=== PATIENT | male | born 1930 | race Hispanic/Latino ===

== ENCOUNTER 2018-06-07 16:34 | Inpatient (IN) | payer MEDICARE ==
[~2018-06-07] VITALS: Ht 172.7 cm; Wt 62.6 kg
--- OUTSIDE RECORDS SUMMARY | 2018-06-07 16:37 | XMS REPORT | Summary of Care ---
Author Author JOSE L SHABAZZ M.D. Organization Unknown Address Unknown Phone Unavailable Care Team Providers Care Furniture Shampooer Name Role Phone JOHN PAUL DOMINGUEZ M.D. Unavailable Unavailable JOSE L SHABAZZ M.D. Unavailable Unavailable Doug Chen, Crystal Unavailable Unavailable SARTHAK BAEZA, TEE Richardson Unavailable Unavailable [place] BAEZA [place], ALLISON Benjamin Unavailable Unavailable Unavailable Unavailable Functional Status Name Dates Details Functional status health issues are not documented Status: Name Dates Details Cognitive status health issues are not documented Status: Problems Name Dates Details Thyroid disorder (246.9, E07.9) Status: Active Peripheral vascular disease (443.9, I73.9) Status: Active Acute on chronic systolic congestive heart failure (428.23, I50.23) Status: Active Aortic valve stenosis, nonrheumatic (424.1, I35.0) Status: Active Carotid artery plaque (433.10, I65.29) Status: Active Chest pain (786.50, R07.9) Status: Active Coronary artery disease (414.00, I25.10) Status: Active Diabetes mellitus (250.00, E11.9) Status: Active Essential (primary) hypertension (401.9, I10) Status: Active Hyperlipidemia (272.4, E78.5) Status: Active Ischemic cardiomyopathy (414.8, I25.5) Status: Active Limb pain (729.5, M79.609) Status: Active 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 * Refills: 0 Active Isosorbide Mononitrate ER 30 MG Oral Tablet Extended Release 24 Hour TAKE 1 TABLET BY MOUTH ONCE DAILY * Quantity: 90 Refills: 0 JOSE L SHABAZZ M.D. * Start : 2-May-2014 Active Ecotrin Low Strength 81 MG Oral Tablet Delayed Release TAKE 1 TABLET DAILY. * Refills: 0 Active HumuLIN 70/30 (70-30) 100 UNIT/ML Subcutaneous Suspension * Refills: 0 Active MetFORMIN HCl - 1000 MG Oral Tablet TAKE 1 TABLET TWICE DAILY. * Refills: 0 Active Torsemide 20 MG Oral Tablet TAKE 1 TABLET EVERY OTHER DAY * Quantity: 45 Refills: 0 JOSE L SHABAZZ M.D. * Start : 25-Jan-2014 Active Carvedilol 3.125 MG Oral Tablet TAKE 1 TABLET TWICE DAILY WITH MEALS. * Quantity: 180 Refills: 0 JOSE L SHABAZZ M.D. * Start : 16-Mar-2014 Active GlipiZIDE ER 10 MG Oral Tablet Extended Release 24 Hour BID * Refills: 0 * Start : 31-Mar-2014 Active Levothyroxine Sodium 50 MCG Oral Tablet TAKE 1 TABLET DAILY. * Quantity: 90 Refills: 0 JOSE L SHABAZZ M.D. * Start : 03-Sep-2016 Active Centrum Oral Tablet TAKE 1 TABLET DAILY. * Refills: 0 JOHN PAUL DOMINGUEZ M.D. * Start : 31-Dec-2016 Active Atorvastatin Calcium 10 MG Oral Tablet TAKE 1 TABLET AT BEDTIME. * Quantity: 30 Refills: 1 JOHN PAUL DOMINGUEZ M.D. * Start : 31-Dec-2016 Active Dorzolamide HCl - 2 % Ophthalmic Solution INSTILL 1 DROP IN THE LEFT EYE TWICE DAILY. * Refills: 0 JOSE L SHABAZZ M.D. 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, 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) Status: Resolved History of peripheral vascular disease (V12.59, Z86.79) Status: Resolved Past myocardial infarction (412, I25.2) Status: Resolved Procedures Procedure Dates Details [B] SERUM PROTEIN ELECTROPHORESIS Date: 25-Mar-2018 [B] HIV 1 & 2 CONFIRMATION TEST Date: 25-Mar-2018 History of CABG Completed History of Hernia Repair Completed History of Cataract Surgery Completed History of Carotid Thromboendarterectomy Completed History of Pacemaker Placement Completed Immunization Name Dates Details Immunizations not documented Family History Name Dates Details Family history of Heart Disease (V17.49) Status: Active Social History Name Dates Details - Status: Name Dates Details Former smoker Vital Signs Date Test Result Details No Known Vitals to report Results Date Description Value Details Results not documented Plan of Care Name Dates Details Planned Observations Planned Goals not documented Planned Encounters Appointment; JOSE L SHABAZZ M.D. On: 14-Oct-2018 9:15 Interventions Provided Medication Changes* Carvedilol 3.125 MG Oral Tablet - Renew * Torsemide 20 MG Oral Tablet - Renew Instructions Name Dates Details Instructions not documented Encounters Appointment; JOSE L SHABAZZ M.D. Encounter Diagnosis: Problem not documented On: 25-Jun-2016 9:15 Appointment; JOSE L SHABAZZ M.D. Encounter Diagnosis: Problem not documented On: 03-Sep-2016 9:45 Appointment; ALLISON IRWIN M.D. Encounter Diagnosis: Problem not documented On: 08-Oct-2016 10:15 Appointment; ALLISON IRWIN M.D. Encounter Diagnosis: Problem not documented On: 22-Oct-2016 10:00 Appointment; ALLISON IRWIN M.D. Encounter Diagnosis: Problem not documented On: 29-Oct-2016 11:30 Appointment; ALLISON IRWIN M.D. Encounter Diagnosis: Problem not documented On: 05-Nov-2016 11:15 Appointment; SE, ECHO Encounter Diagnosis: Problem not documented On: 15-Dec-2016 8:00 Appointment; SE ECHO Encounter Diagnosis: Problem not documented On: 15-Dec-2016 8:00 Appointment; JOSE L SHABAZZ M.D. Encounter Diagnosis: Problem not documented On: 31-Dec-2016 9:10 Appointment; JOSE L SHABAZZ M.D. Encounter Diagnosis: Problem not documented On: 31-Dec-2016 9:15 Appointment; JOSE L SHABAZZ M.D. Encounter Diagnosis: Problem not documented On: 30-Apr-2017 9:30 Appointment; JOSE L SHABAZZ M.D. Encounter Diagnosis: Problem not documented On: 19-Aug-2017 13:20 Appointment; , [facility] Encounter Diagnosis: Problem not documented On: 09-Sep-2017 15:15 Appointment; JOSE L SHABAZZ M.D. Encounter Diagnosis: Problem not documented On: 22-Sep-2017 13:10 Appointment; JOSE L SHABAZZ M.D. Encounter Diagnosis: Problem not documented On: 24-Dec-2017 13:40 Appointment; JOSE L SHABAZZ M.D. Encounter Diagnosis: Problem not documented On: 25-Mar-2018 10:15 Appointment; JOSE L SHABAZZ M.D. Encounter Diagnosis: Problem not documented On: 15-Apr-2018 9:45
--- OUTSIDE RECORDS SUMMARY | 2018-06-07 16:37 | XMS REPORT | Summary of Care ---
Author Author JOSE L SHABAZZ M.D. Unknown Address Unknown Phone Unavailable Care Team Providers Care Lawn Care Specialist Name Role Phone JOHN PAUL DOMINGUEZ M.D. Unavailable Unavailable JOSE L SHABAZZ M.D. Unavailable Unavailable TEE DE LEÓN MD Unavailable Unavailable DC BAEZA [place], ALLISON Benjamin Unavailable Unavailable Unavailable Unavailable Functional Status Name Dates Details Functional status health issues are not documented Status: Name Dates Details Cognitive status health issues are not documented Status: Problems Name Dates Details Acute on chronic systolic congestive heart failure (428.23, I50.23) Status: Active Thyroid disorder (246.9, E07.9) Status: Active Peripheral vascular disease (443.9, I73.9) Status: Active Aortic valve stenosis, nonrheumatic (424.1, [...] JOSE L SHABAZZ M.D. * Start : 11-May-2014 Active Ecotrin Low Strength 81 MG Oral [...] * Start : 31-Mar-2014 Active Levothyroxine Sodium 25 MCG Oral Tablet TAKE 1 TABLET DAILY. [...] I25.2) Status: Resolved Procedures Procedure Dates Details History of CABG Completed History of Hernia Repair Completed History of Cataract Surgery Completed History of Carotid Thromboendarterectomy Completed History of Pacemaker Placement Completed Immunization Name Dates Details Immunizations not documented Family History Name Dates Details Family history of Heart Disease (V17.49) Status: Active Social History Name Dates Details - Status: Name Dates Details Former smoker Vital Signs Date Test Result Details [id number] BP Systolic 159 mm[Hg] Status: BP Diastolic 55 mm[Hg] Status: Height 65 in Status: Weight 148 lb Status: Body Mass Index Calculated 24.63 kg/m2 Status: Body Surface Area Calculated 1.74 m2 Status: Heart Rate 68 /min Status: Results Date Description Value Details Results not documented Plan of Care Name Dates Details Planned Observations Planned Goals not documented Planned Encounters Appointment; JOSE L SHABAZZ M.D. On: 25-Mar-2018 10:15 Interventions Provided Instructions* Patient Specific Education Given; Done: 24 Dec 2017 Plan* CAD * - ASymptomatic, remote ACB * - Continue medical therapy optimization and aggressive CV risk factor control * - On ASA, Atorvastatin 20mg HS and Carvedilol 6.25mg BID, nitrates. * - Continue GDMT * ATRIAL FIBRILLATION * - Currently sinus. * - Not on OAC due to fall risk. * - Continue amiodarone 100mg qd + -b-blockers * HLD * - LDL well controlled, he has lost almost 20llbs! hold statins for now * PAD * - Continue ASA * - Exercise therapy * * - s/p TAVR - Dumont Anny 3 - 23mm * - Doing very well. Repeat TTE shows LVEF 40-45% with normal functioning valve * - TTE with valve shows normal function. * BRADYCARDIA * - REsolved * HTN * - Well controlled, continue same * - He refers that he feels better * GI BLEED * - Working with GI, plans for capsule endoscopy * WEIGHT LOSS * - Unclear etiology; work up in progresss * RTC 3 months Discussion/Summary* Reviewed and discussed clinical cardiac findings and medications. * EKG, hospital records and defibrillator results reviewed and discussed. Instructions Name Dates Details Instructions not documented Encounters Appointment; JOSE L SHABAZZ M.D. Encounter Diagnosis: Problem not documented On: 04-Jan-2016 8:50 Appointment; JOSE L SHABAZZ M.D. Encounter Diagnosis: Problem not documented On: 16-Jan-2016 14:30 Appointment; SE, ECHO Encounter Diagnosis: Problem not documented On: 28-Feb-2016 9:00 Appointment; JOSE L SHABAZZ M.D. Encounter Diagnosis: Problem not documented On: 28-Feb-2016 9:30 Appointment; JOSE L SHABAZZ M.D. Encounter [...] Problem not documented On: 15-Dec-2016 8:00 Appointment; SE, ECHO Encounter Diagnosis: Problem not [...] Problem not documented On: 19-Aug-2017 13:20 Appointment; SE, ECHO Encounter Diagnosis: Problem not documented On: 09-Sep-2017 15:15 Appointment; JOSE L SHABAZZ M.D. Encounter Diagnosis: Problem not documented On: 22-Sep-2017 13:10 Appointment; JOSE L SHABAZZ M.D. Encounter Diagnosis: Problem not documented On: 24-Dec-2017 13:40
--- OUTSIDE RECORDS SUMMARY | 2018-06-07 16:37 | XMS REPORT ---
Author Author [facility] Address Unknown Phone Unavailable Care Team Providers Care Risk Consulting Treasury Director Name Role Phone Unavailable Unavailable Problems This patient has no known problems. Allergies, Adverse Reactions, Alerts This patient has no known allergies or adverse reactions. Medications This patient has no known medications.
[2018-06-07 17:27] LABS: BASOPHILS # (AUTO) 0.1 (0.0-0.1); BASOPHILS % 0.5 % (0.0-1.0); EOSINOPHILS # (AUTO) 0.1 (0.0-0.4); EOSINOPHILS % 0.8 % (0.0-6.0); HEMATOCRIT 29.1 % (38.2-49.6); HEMOGLOBIN 9.3 g/dL (14.0-18.0); LYMPHOCYTES # (AUTO) 1.4 (1.0-3.2); LYMPHOCYTES % 13.3 % (18.0-39.1); MEAN CORPUSCULAR HEMOGLOBIN 28.6 pg (28-32); MEAN CORPUSCULAR VOLUME 89.5 fL (81-99); MONOCYTES # (AUTO) 0.6 (0.2-0.8); MONOCYTES % 5.7 % (4.4-11.3); NEUTROPHILS # (AUTO) 8.1 (2.1-6.9); NEUTROPHILS % 79.2 % (38.7-80.0); PLATELET COUNT 192 x10e3/uL (140-360); RED BLOOD COUNT 3.25 x10e6/uL (4.3-5.7); RED CELL DISTRIBUTION WIDTH 16.9 % (11.7-14.4)
[2018-06-07 17:40] LABS: INR 1.14; PARTIAL THROMBOPLASTIN TIME 28.8 seconds (23.8-35.5); PROTHROMBIN TIME 15.6 seconds (11.9-14.5)
[2018-06-07 17:46] LABS: ALBUMIN 2.8 g/dL (3.5-5.0); ALBUMIN/GLOBULIN RATIO 0.6 (0.8-2.0); ANION GAP 14.8 mmol/L (8-16); CALCIUM 9.6 mg/dL (8.4-10.2); CREATININE, SERUM 1.8 mg/dL (0.72-1.25); MAGNESIUM 1.8 MG/DL (1.3-2.1); POTASSIUM 3.8 mmol/L (3.5-5.1)
[2018-06-07 17:56] LABS: CREATINE KINASE MB 2.9 ng/mL (0-5.0)
[2018-06-07 17:57] LABS: B-TYPE NATRIURETIC PEPTIDE2 2234.9 pg/mL (0-100)
[2018-06-07] MEDS ORDERED: FUROSEMIDE INJ 10 MG/ML 4 ML VIAL IV ONE (18:15)
[2018-06-07 18:18] LABS: HYPOCHROMASIA SLIGHT; LYMPHOCYTES % (MANUAL) 9 % (19-48); MONOCYTES % (MANUAL) 6 % (3.4-9.0); NEUTROPHILS % (MANUAL) 84 % (40-74); RBC MORPHOLOGY COMMENT NORMAL
--- NOTE | 2018-06-07 18:18 | Diagnostic Imaging Report ---
Examination: Single AP view of the chest. COMPARISON: None. INDICATION: Respiratory distress, SOB IMPRESSION: 1. Lines and Tubes: Single lead cardiac device in the left upper chest, with distal tip projecting in the right ventricle. 2. Hypoinflated lungs. Bibasilar atelectasis, left greater than right. Likely left pleural effusion. 3. Prominent cardiac silhouette, which is partly due to low lung volumes. Central pulmonary venous congestion. 4. No acute bony abnormalities. Generalized osteopenia. Signed by: Dr. Haresh Fortune M.D. on 06/07/2018 6:15 PM
[2018-06-07 18:19] LABS: PLATELET ESTIMATE ADEQUATE; PLATELET MORPHOLOGY COMMENT NORMAL
[2018-06-07 18:29] LABS: ABG HCO3 13 mmol/L (23-28); ABG PCO2 25 mmHg (41-51); ABG PH 7.33 (7.31-7.41); ABG PO2 69 mmHg (80-105)
--- NOTE | 2018-06-07 19:06 | Consultation ---
DATE OF CONSULTATION: June 07, 2018 CARDIOLOGY CONSULTATION REFERRING PHYSICIAN: Dr. Jethro Ku. REASON FOR CONSULTATION: Shortness of breath. HISTORY OF PRESENT ILLNESS: Mr. Tyler is a pleasant 88-year-old man with a history of hypertension, dyslipidemia, coronary artery disease with prior aortocoronary bypass, a reported history of transcatheter aortic valve replacement and status post ICD, who presents to [facility] transferred from [facility] with complaints of worsening shortness of breath after receiving IV fluids yesterday for low blood pressure. He has had weight loss over the last several months, currently denies any chest pain. His dyspnea is improving. He order of Lasix in the emergency department. No other complaints at this time. REVIEW OF SYSTEMS: A 12-system review negative except for as noted above. ALLERGIES: NO KNOWN DRUG ALLERGIES. PAST MEDICAL HISTORY: As per HPI. SOCIAL HISTORY: Former smoker. No alcohol or drugs. FAMILY HISTORY: Noncontributory. PHYSICAL EXAMINATION VITAL SIGNS: Temperature 98.4, heart rate 65, respiratory rate 20, blood pressure 125/65, O2 sat 93% on nasal cannula. GENERAL: No acute distress. NECK: JVD elevated to mid neck. CHEST: Decreased breath sounds in bilateral bases with scattered rales. CARDIOVASCULAR: Regular rate and rhythm. Normal S1 and S2. A systolic ejection murmur at left lower parasternal border as well as a midsystolic murmur in the apex. A sternotomy scar. ABDOMEN: Soft, nontender. EXTREMITIES: With trace edema. Decreased pedal pulses. CARDIOVASCULAR MEDICATIONS: Reviewed. STUDIES: Reviewed. White blood cells 10.2, hemoglobin 9.3, platelets 192. INR 1.1. Creatinine 1.8. Troponin I of 0.119. BNP is 2234. Normal transaminases. Lactic acid of 17. Glucose 215. Total protein 7.4, albumin 2.8. Blood cultures ordered and pending. Chest x-ray with prominent cardiomediastinal silhouette and interstitial pulmonary edema, pending x-ray read by Radiology. Defibrillator noted. ASSESSMENT 1. Gnnwu-qg-gappmwt heart failure. 2. Status post aortic valve replacement, transcatheter. 3. Automatic implantable cardioverter-defibrillator with a history of bypass. 4. Hypertension. 5. Dyslipidemia. 6. Renal failure. 7. Deconditioning and weight loss. RECOMMENDATIONS 1. Agree with diuretics. 2. Resume antihypertensives and obtain echocardiogram. 3. Keep on telemetry. 4. Will discuss with his outpatient treating document management specialist to further obtain confirmation on prior history. Further recommendations to follow. Thank you for the opportunity to participate in the care of Mr. Tyler. Job#: [id number] EV
[2018-06-07] MEDS ORDERED: ALBUTEROL SULF 0.083% NEB SOLN 3 ML NEB NEB STA (19:13)
[2018-06-07] MEDS ORDERED: IPRATROPIUM BROMIDE 0.02% 2.5 ML NEB NEB ONE (19:15)
[2018-06-07] MEDS ORDERED: ONDANSETRON HCL INJ 2 MG/ML VIAL IV PRN (19:30)
[2018-06-07] MEDS ORDERED: DEXTROSE 50% SYRINGE 50 ML IV PRN (19:30)
[2018-06-07] MEDS ORDERED: FAMOTIDINE 20 MG/2 ML VIAL IV SCH (19:30)
[2018-06-07] MEDS: ATORVASTATIN 20 MG TAB PO SCH (20:20)
[2018-06-07] MEDS: METOPROLOL TARTRATE 25 MG TAB PO SCH (22:08)
[2018-06-07] MEDS ORDERED: ACETAMINOPHEN 325 MG TAB PO PRN (22:30)
[2018-06-07 22:40] LABS: CLARITY,URINE CLOUDY (CLEAR); COLOR,URINE YELLOW (YELLOW)
[2018-06-07 22:41] LABS: BILIRUBIN,URINE NEGATIVE (NEGATIVE); KETONES,URINE NEGATIVE (NEGATIVE); LEUKOCYTE ESTERASE ,URINE 2+ (NEGATIVE); NITRITE,URINE NEGATIVE (NEGATIVE); PROTEIN,URINE DIPSTICK NEGATIVE (NEGATIVE); URINE UROBILINOGEN 0.2 mg/dL (0.2 - 1)
[2018-06-07] MEDS: INSULIN LISPRO 100 UNIT/1 ML 3ML VIAL SQ SCH (22:47)
[2018-06-07 23:00] LABS: WBC,URINE (MAN) >50 /HPF (0-5)
[2018-06-07 23:04] LABS: BACTERIA,URINE FEW /HPF; EPITHELIAL CELLS,URINE FEW /LPF; YEAST,URINE MANY
[2018-06-07] MEDS ORDERED: NYSTATIN1 EAC1 TOP (23:07)
[2018-06-07] MEDS ORDERED: AMIODARONE HCL200 MG PO (23:07)
[2018-06-07] MEDS ORDERED: BENZONATATE100 MG PO (23:07)
[2018-06-07] MEDS ORDERED: ZINC SULFATE220 M1 PO (23:07)
[2018-06-07] MEDS ORDERED: METFORMIN HCL500 MG PO (23:07)
[2018-06-07] MEDS ORDERED: MEGESTROL ACETA40 MG PO (23:07)
[2018-06-07] MEDS ORDERED: NOVOLOG MI100 UNIT/1 SQ (23:07)
[2018-06-07] MEDS ORDERED: TIMOPTIC5 ML OU (23:07)
[2018-06-07] MEDS ORDERED: FINASTERIDE5 MG PO (23:07)
[2018-06-07] MEDS ORDERED: LEVOTHYROXINE50 MCG PO (23:07)
[2018-06-07] MEDS ORDERED: ASPIRIN EC81 MG PO (23:07)
[2018-06-07] MEDS ORDERED: DORZOLAMIDE HCL10 ML OS (23:07)
[2018-06-07] MEDS ORDERED: MULTIPLE VITAM1 EAC1 PO (23:07)
[2018-06-07] MEDS ORDERED: TYLENOL WITH C1 EACH PO (23:07)
[2018-06-07] MEDS ORDERED: TAMSULOSIN HCL0.4 MG PO (23:07)
[2018-06-07] MEDS ORDERED: XALATAN2.5 ML OU (23:07)
[2018-06-07] MEDS ORDERED: CILOSTAZOL100 MG PO (23:07)
[2018-06-07] MEDS ORDERED: ATORVASTATIN CA20 MG PO (23:07)
[2018-06-07] MEDS ORDERED: POTASSIUM CHLO20 ME1 PO (23:07)
[2018-06-07] MEDS ORDERED: GLIPIZIDE5 MG PO (23:07)
[2018-06-07] MEDS ORDERED: SILVADENE20 GM TOP (23:07)
[2018-06-08] MEDS: CEFTRIAXONE SOD 1 GM VIAL IV SCH ×2 (00:13→23:45)
[2018-06-08 01:30] LABS: ALBUMIN 2.5 g/dL (3.5-5.0); ALBUMIN/GLOBULIN RATIO 0.6 (0.8-2.0); ANION GAP 17.6 mmol/L (8-16); BASOPHILS % 0.2 % (0.0-1.0); CALCIUM 9.2 mg/dL (8.4-10.2); CREATININE, SERUM 1.86 mg/dL (0.72-1.25); HEMATOCRIT 24.4 % (38.2-49.6); HEMOGLOBIN 7.9 g/dL (14.0-18.0); LYMPHOCYTES # (AUTO) 1.2 (1.0-3.2); LYMPHOCYTES % 8.7 % (18.0-39.1); MEAN CORPUSCULAR HEMOGLOBIN 28.8 pg (28-32); MEAN CORPUSCULAR HGB CONC 32.4 g/dL (31-35); MEAN CORPUSCULAR VOLUME 89.1 fL (81-99); MONOCYTES # (AUTO) 0.6 (0.2-0.8); MONOCYTES % 4.4 % (4.4-11.3); NEUTROPHILS # (AUTO) 12.2 (2.1-6.9); NEUTROPHILS % 86.1 % (38.7-80.0); PLATELET COUNT 174 x10e3/uL (140-360); POTASSIUM 3.6 mmol/L (3.5-5.1); RED BLOOD COUNT 2.74 x10e6/uL (4.3-5.7); RED CELL DISTRIBUTION WIDTH 16.9 % (11.7-14.4)
[2018-06-08 02:24] LABS: THYROID STIMULATING HORMONE 2.807 uIU/mL (0.350-4.940)
[2018-06-08] MEDS: INSULIN LISPRO 100 UNIT/1 ML 3ML VIAL SQ SCH ×4 (08:21→21:28)
[2018-06-08] MEDS ORDERED: METOPROLOL TARTRATE INJ 1 MG/ML VIAL IV PRN (08:30)
--- NOTE | 2018-06-08 08:57 | History and Physical ---
CHIEF COMPLAINT: Shortness of breath and confusion. HISTORY OF PRESENT ILLNESS: This is an 88-year-old man who is a resident at [facility], now developing shortness of breath and sent to the hospital for further evaluation and management. The patient is unable to provide any history. All history has been obtained from records provided by the facility. PAST MEDICAL HISTORY: Cardiac arrhythmia, hypertension, hyperlipidemia, BPH, diabetes mellitus, type 2, anorexia, fungal infection. PAST SURGICAL HISTORY: Unknown. ALLERGIES: PER ELECTRONIC MEDICAL RECORD. FAMILY HISTORY/SOCIAL HISTORY: Patient currently resides at [facility]. PHYSICAL EXAMINATION CHEST: He has a subcutaneous cardiac device palpable. Lungs with coarse breath sounds throughout. EXTREMITIES: With no edema. He has a right foot with dressing in place for decubitus heel ulcer. MUSCULOSKELETAL: He has stage 2 sacral ulcer. SKIN: Dry. PSYCHIATRIC: Flat affect. NEUROLOGIC: Confused. LABS: Reviewed. MEDICATIONS: Reviewed. ASSESSMENT AND PLAN: This is an 88-year-old man with: 1. Acute bronchitis and possible pneumonia. 2. Acute exacerbation of systolic congestive heart failure. 3. Sepsis. 4. Right pleural effusion. 5. Diabetes mellitus, type 2. 6. Systolic congestive heart failure. 7. Metabolic acidosis. 8. Elevated troponin. 9. Urinary tract infection. 10. Moderate anemia. 11. Cardiac arrhythmia: Add amiodarone. PLAN 1. Treat with antibiotics for possible pneumonia and also for urinary tract infection. 2. Follow up cultures. 3. Obtain hemoglobin A1c and lipid panel. 4. Will obtain a CT scan of the chest without contrast. 5. Echocardiogram shows left ventricular ejection fraction less than 20% with some valve disease with prosthetic valve. 6. Follow up cardiology recommendations. 7. Obtain cardiac enzymes. 8. Will use heparin 5000 q.8 h. and Pepcid. 9. Continue IV Lasix. 10. Monitor closely. Job#: [id number] EV
[2018-06-08 09:10] LABS: BASOPHILS % 0.3 % (0.0-1.0); HEMATOCRIT 25.3 % (38.2-49.6); HEMOGLOBIN 8.1 g/dL (14.0-18.0); LYMPHOCYTES # (AUTO) 1.5 (1.0-3.2); LYMPHOCYTES % 11.2 % (18.0-39.1); MEAN CORPUSCULAR HEMOGLOBIN 28.5 pg (28-32); MEAN CORPUSCULAR VOLUME 89.1 fL (81-99); MONOCYTES # (AUTO) 0.6 (0.2-0.8); MONOCYTES % 4.2 % (4.4-11.3); NEUTROPHILS % 83.7 % (38.7-80.0); PLATELET COUNT 163 x10e3/uL (140-360); RED BLOOD COUNT 2.84 x10e6/uL (4.3-5.7); RED CELL DISTRIBUTION WIDTH 16.9 % (11.7-14.4)
[2018-06-08] MEDS: FAMOTIDINE 20 MG/2 ML VIAL IV SCH ×2 (09:21→17:00)
[2018-06-08] MEDS: FUROSEMIDE INJ 10 MG/ML 4 ML VIAL IV SCH ×2 (09:21→17:00)
[2018-06-08] MEDS: HEPARIN SOD (PORCINE) 5,000 UNIT/ML VIAL SC SCH ×2 (09:21→21:28)
[2018-06-08 09:34] LABS: ALBUMIN 2.5 g/dL (3.5-5.0); ALBUMIN/GLOBULIN RATIO 0.6 (0.8-2.0); ANION GAP 16.9 mmol/L (8-16); CALCIUM 9.4 mg/dL (8.4-10.2); CREATININE, SERUM 1.83 mg/dL (0.72-1.25); POTASSIUM 3.9 mmol/L (3.5-5.1)
[2018-06-08 09:45] LABS: CREATINE KINASE MB 3.6 ng/mL (0-5.0)
[2018-06-08] MEDS: METOPROLOL TARTRATE 25 MG TAB PO SCH ×2 (10:16→21:00)
[2018-06-08] MEDS: ASPIRIN 81 MG CHEW TAB PO SCH (10:16)
[2018-06-08 10:21] LABS: BAND NEUTROPHILS % (MANUAL) 2 %; LYMPHOCYTES % (MANUAL) 15 % (19-48); METAMYELOCYTES % (MANUAL) 1 % (0-0); MONOCYTES % (MANUAL) 2 % (3.4-9.0); NEUTROPHILS % (MANUAL) 80 % (40-74)
[2018-06-08 10:23] LABS: PLATELET ESTIMATE ADEQUATE; PLATELET MORPHOLOGY COMMENT NORMAL
[2018-06-08 10:24] LABS: HYPOCHROMASIA SLIGHT; RBC MORPHOLOGY COMMENT NORMAL
[2018-06-08 12:13] VITALS: BP 131/58
[2018-06-08 13:10] VITALS: BP 131/58
[2018-06-08 13:43] VITALS: BP 131/58
--- NOTE | 2018-06-08 13:54 | Diagnostic Imaging Report ---
CT CHEST WITHOUT CONTRAST HISTORY: CHF, anemia COMPARISON: Chest radiograph June 07, 2018 TECHNIQUE: CT scan of the chest WITHOUT intravenous contrast, using standard protocol. The chest was scanned utilizing a multidetector helical scanner from the apex to the level of the adrenal glands. Coronal and sagittal reformats are provided. IV CONTRAST: None, which limits evaluation of the vascular structures, mediastinum and soft tissues. RADIATION DOSE: Total DLP: 527 mGy*cm Dose modulation, iterative reconstruction, and/or weight based adjustment of the mA/kV was utilized to reduce the radiation dose to as low as reasonably achievable. COMPLICATIONS: None FINDINGS: Lines/tubes: Left-sided implanted cardiac device. Lungs and Airways: Low lung volumes result in bibasilar vascular crowding, accentuation of the pulmonary interstitial markings, central pulmonary vasculature, and the cardiac silhouette. Allowing for these limitations, the findings are as follows: * Biapical pleural-parenchymal nodule densities versus scarring. * Patchy areas of nodular conglomerates, some in a nonspecific tree-in-bud type distribution. More confluent opacities in the dependent portion of the lower lobes, right greater than left. * Diffusely increased interstitial markings. * Impaction versus aspiration of multiple bronchi, most notably the right lower lobe. Pleura: The pleural spaces are clear. Heart and mediastinum: The thyroid gland is normal. Global cardiomegaly. Abdomen: Limited nonenhanced views of the upper abdomen. Diffuse parenchymal atrophy of the pancreas. Small calcified stones within the gallbladder. A 1.6 cm fluid density at the anterior interpolar region of the right kidney. Lymph nodes: No pathologically enlarged lymph node identified. Vessels: Scattered atherosclerotic vascular calcifications, including the coronary arteries. Probable coronary metallic stents. A metallic stent at the aortic root. Bones: Diffusely decreased mineralization of the osseous structures limits bone detail. Multiple median sternotomy wires. Multiple left-sided rib fracture deformities in the late stages of healing. Accentuation of the thoracic kyphosis. Multilevel mild to moderate degenerative disc changes. Soft tissues: Otherwise, unremarkable. IMPRESSION: 1. Findings suggestive of multifocal aspiration. In the appropriate setting, an atypical multifocal pneumonia may be an alternative consideration. 2. Cardiomegaly, central pulmonary vascular congestion, and probable mild interstitial edema. 3. Coronary atherosclerosis. 4. Cholelithiasis. 5. Osseous demineralization. 6. Right renal cyst, likely an incidental simple cyst. Signed by: Dr. Amarjit Tsang D.O., M.M.M. on 06/08/2018 1:51 PM
[2018-06-08] MEDS ORDERED: DEXTROSE 5%/0.45% SOD CHL 1,000 ML IV SCH (15:15)
[2018-06-08 16:03] VITALS: BP 123/58
[2018-06-08 18:13] LABS: CREATINE KINASE MB 3.3 ng/mL (0-5.0)
--- NOTE | 2018-06-08 18:45 | Progress Note ---
DATE: June 08, 2018 CARDIOLOGY PROGRESS NOTE SUBJECTIVE: No complaints currently. Shortness of breath improving. OBJECTIVE VITAL SIGNS: Temperature 97.4, heart rate 111, respiratory rate 17, blood pressure 123/58, O2 sat 97% on 2 liters per minute nasal cannula. GENERAL: In no acute distress. Overall not taking p.o. NECK: Today JVD in lower third of neck. CHEST: With coarse breath sounds and bilateral base rales. CARDIOVASCULAR: Regular rate and rhythm. Normal S1 and S2. A systolic ejection murmur. ABDOMEN: Soft, nontender. EXTREMITIES: Trace edema. CARDIOVASCULAR MEDICATIONS: Reviewed. On subcutaneous heparin 5000 units q.12 h., furosemide 40 mg b.i.d. IV, atorvastatin 20 mg nightly, aspirin 81 mg daily, metoprolol tartrate 12.5 mg every 12 hours. STUDIES: Reviewed. White blood cells 13.1, hemoglobin 8.1, platelets 163. Sodium 143, potassium 3.9, chloride 114, bicarbonate 16, BUN 29, creatinine 1.8, glucose 255, calcium 9.4. Total bilirubin 0.7, AST is 10, ALT 6. Troponin I 0.389 down from 0.520. Echocardiogram reviewed. With LVEF of 25% to 30%. Urinalysis concerning for a urinary tract infection. ASSESSMENT 1. Ulyhh-vh-linoiit severe systolic heart failure. 1. Status post transcatheter aortic valve replacement. 2. History of aortocoronary bypass. 3. Poor oral intake/failure to thrive. 4. Severe deconditioning. 5. Urinary tract infection and sepsis. 6. Diabetes mellitus type 2. 7. Right-sided pleural effusion. 8. Metabolic acidosis. 9. Anemia. RECOMMENDATIONS 1. At this point continue to optimize his volume status. Continue diuretics. 2. Continue current cardiovascular medications. 3. IV antibiotics per primary service for UTI/sepsis. 4. Very deconditioned with decreased p.o. intake, weight loss. Consider rehab continuation as well as evaluation by speech pathology. Job#: [id number] EV
[2018-06-08 20:00] VITALS: BP 112/69
[2018-06-08] MEDS: ATORVASTATIN 20 MG TAB PO SCH (21:00)
[2018-06-08 21:28] VITALS: BP 112/69
[2018-06-09] VITALS: BP 129/62
[2018-06-09 04:00] VITALS: BP 105/52
[2018-06-09 07:22] LABS: BASOPHILS % 0.3 % (0.0-1.0); EOSINOPHILS % 0.2 % (0.0-6.0); LYMPHOCYTES # (AUTO) 1.2 (1.0-3.2); LYMPHOCYTES % 9.3 % (18.0-39.1); MEAN CORPUSCULAR HEMOGLOBIN 28.4 pg (28-32); MEAN CORPUSCULAR VOLUME 91.5 fL (81-99); MONOCYTES # (AUTO) 0.6 (0.2-0.8); MONOCYTES % 4.9 % (4.4-11.3); NEUTROPHILS # (AUTO) 10.4 (2.1-6.9); NEUTROPHILS % 84.6 % (38.7-80.0); PLATELET COUNT 175 x10e3/uL (140-360); RED BLOOD COUNT 3.17 x10e6/uL (4.3-5.7); RED CELL DISTRIBUTION WIDTH 17.5 % (11.7-14.4)
[2018-06-09] MEDS: INSULIN LISPRO 100 UNIT/1 ML 3ML VIAL SQ SCH (07:30)
[2018-06-09 07:39] LABS: ANION GAP 18.4 mmol/L (8-16); CALCIUM 9.5 mg/dL (8.4-10.2); CREATININE, SERUM 1.69 mg/dL (0.72-1.25); MAGNESIUM 1.7 MG/DL (1.3-2.1); POTASSIUM 3.4 mmol/L (3.5-5.1)
[2018-06-09 08:00] VITALS: BP 132/61
[2018-06-09 08:03] LABS: BAND NEUTROPHILS % (MANUAL) 4 %; LYMPHOCYTES % (MANUAL) 10 % (19-48); METAMYELOCYTES % (MANUAL) 1 % (0-0); MONOCYTES % (MANUAL) 1 % (3.4-9.0); NEUTROPHILS % (MANUAL) 84 % (40-74); PLATELET ESTIMATE ADEQUATE; PLATELET MORPHOLOGY COMMENT NORMAL; RBC MORPHOLOGY COMMENT NORMAL
--- NOTE | 2018-06-09 08:07 | History and Physical ---
ADDENDUM H&P was dictated 06/08/2018 at 8:21. Vital signs have been reviewed. REVIEW OF SYSTEMS: Unobtainable. Job#: [id number] TA
--- NOTE | 2018-06-09 08:12 | History and Physical ---
ADDENDUM H&P dated 06/08/2018 at 8:21. PHYSICAL EXAMINATION GENERAL APPEARANCE: A tired-appearing man, resting in bed. HEENT: Anicteric. CARDIOVASCULAR: Normal S1, S2. Job#: [id number] TA
[2018-06-09] MEDS: FUROSEMIDE INJ 10 MG/ML 4 ML VIAL IV SCH (08:57)
[2018-06-09] MEDS: HEPARIN SOD (PORCINE) 5,000 UNIT/ML VIAL SC SCH (08:57)
[2018-06-09] MEDS: ASPIRIN 81 MG CHEW TAB PO SCH (08:57)
[2018-06-09] MEDS: FAMOTIDINE 20 MG/2 ML VIAL IV SCH (08:57)
[2018-06-09] MEDS: METOPROLOL TARTRATE 25 MG TAB PO SCH (08:58)
[2018-06-09] MEDS ORDERED: BALSAM PERU/CASTOR OIL 5 GM OINT...G. TP SCH (09:00)
[2018-06-09] MEDS ORDERED: SUCCINYLCHOLINE 200 MG/10 ML SYR ONE (10:00)
[2018-06-09] MEDS ORDERED: ETOMIDATE 40 MG/ 20ML VIAL IV ONE (10:00)
--- NOTE | 2018-06-09 11:25 | Diagnostic Imaging Report ---
Exam: Abdominal film Clinical History: Rapid response, NG tube placement Comparison: None. DISCUSSION: Bowel gas pattern shows no dilated, air-filled loops of bowel. Enteric tube tip projects over the gastric fundus. No mass effect or organomegaly. Regional skeletal structures are intact. The right flank is not included in the radiograph. IMPRESSION: Enteric tube tip projects over the gastric fundus. Nonobstructive bowel gas pattern. Signed by: Dr. Jc Akins M.D. on 06/09/2018 11:22 AM
--- NOTE | 2018-06-09 11:30 | Diagnostic Imaging Report ---
Examination: Single AP view of the chest. COMPARISON: CT chest 06/08/2018 INDICATION: Rapid response, intubation DISCUSSION: Endotracheal tube tip projects 2.6 cm above the stephania. Enteric tube tip projects over the gastric fundus. Unchanged left subclavian approach implantable cardiac device and aortic valvular prosthesis. Postsurgical changes of the mediastinum. Patchy bibasilar airspace opacities are unchanged relative to comparison CT. No sizable pleural effusion or pneumothorax. Regional skeletal structures are intact. IMPRESSION: Endotracheal tube tip projects 2.6 cm above the stephania. Patchy bilateral lower lobe airspace opacities likely reflective of aspiration are unchanged. Refer also to CT 06/08/2018. Signed by: Dr. Jc Akins M.D. on 06/09/2018 11:27 AM
[2018-06-09] MEDS ORDERED: LACTATED RINGER S IV ONE (11:45)
[2018-06-09] MEDS ORDERED: NOREPINEPHRINE 8 MG/D5W 250 ML 250 ML ONE (11:58)
[2018-06-09] MEDS ORDERED: SODIUM BICARBONATE 8.4% SYRING 50 ML ONE (12:28)
[2018-06-09] MEDS ORDERED: ATROPINE SULFATE 0.1 MG/ML 10ML SYR ONE (18:06)
[2018-06-09] MEDS ORDERED: SODIUM BICARBONATE 8.4% INJ 50 ML SYR ONE (18:06)
[2018-06-09] MEDS ORDERED: AMIODARONE HCL INJ 150MG/3ML ONE (18:06)
[2018-06-09] MEDS ORDERED: EPINEPHRINE HCL SYRINGE ONE (18:06)
--- NOTE | 2018-06-09 18:42 | Consultation ---
DATE OF CONSULTATION: June 09, 2018 PULMONARY/CRITICAL CARE CONSULTATION REFERRING PHYSICIAN: Dr. Javad Mayfield CHIEF COMPLAINT: Pneumonia and respiratory failure. HISTORY OF PRESENT ILLNESS: The patient is an 88-year-old man. He has a history of chronic cardiac problems. He was recently hospitalized at [facility] and then again at [facility]. He left [facility] about 2 weeks ago. According to the , he had a valve replacement. He also had a pacemaker previously. He was staying at [facility] when he became sick and had to be transferred to [facility]. Radiographic and laboratory evaluation showed a multifocal aspiration pneumonia. He was started on IV antibiotics. This morning he acutely became worse and required emergent intubation. He required bicarbonate for his acidosis and was then started on pressors. PAST SURGICAL HISTORY 1. Status post valve replacement. 2. Status post a pacemaker. PAST MEDICAL HISTORY 1. Chronic severe systolic congestive heart failure. 2. Hypertension. 3. Diabetes. 4. Vague history of a fungal infection. ALLERGIES: THERE ARE NO KNOWN DRUG ALLERGIES. FAMILY HISTORY: Noncontributory. REVIEW OF SYSTEMS: Apparently he was more confused. He complained of some difficulty breathing but no chest pain. He became acutely worse this morning. PHYSICAL EXAMINATION VITAL SIGNS: Patient was on a mechanical ventilation with assist control mode of ventilation. He was on Levophed at maximum dosages as well as epinephrine. HEENT: Examination shows no facial swelling or erythema. The oropharynx is normal. There is an endotracheal tube in place. CARDIAC: Exam reveals regular rate and rhythm with normal S1 and S2. There is a right intraosseous line in the right humerus. ABDOMEN: Soft, nontender. There is no rebound or guarding. There is no leg edema or calf tenderness. RADIOGRAPHIC DATA: Chest CT from the shows multifocal pneumonia. There is also cardiomegaly as well as cholelithiasis. Chest x-ray from today shows bilateral infiltrates and endotracheal tube in good position. LABORATORY DATA: The white blood cell count is 12.3, and hemoglobin is 9. Platelet count is 175. IJM-pb-[id number] ratio is 26:1.69. Sodium is 148. IMPRESSIONS 1. Acute respiratory failure. 2. Aspiration pneumonia with septic shock. 3. Chronic congestive heart failure. 4. Cardiogenic shock. 5. Acute kidney injury. PLAN 1. During my evaluation, the patient lost his pulse. He required CPR followed by bicarbonate, epinephrine and atropine. 2. Continue antibiotics. 3. Central line placement. 4. Continue pressors. 5. Overall prognosis is very poor. Discussed poor prognosis and code status with the family. The patient has a as well as 3 sons. One of the sons lives in [place] and 2 live locally, although one of the 2 local sons is unavailable at this time due to his work. Greater than 35 minutes in direct critical care time. Case discussed with , nursing staff, respiratory and son. Job#: [id number]
--- NOTE | 2018-06-09 20:09 | Progress Note ---
DATE: June 09, 2018 CARDIOLOGY PROGRESS NOTE SUBJECTIVE: Found in agonal breathing, hypoxemic, hypotensive on the floor, underwent emergent endotracheal intubation. X-rays suggestive of multifocal pneumonia versus aspiration. Started on epinephrine and dopamine in ICU for hemodynamic instability. PHYSICAL EXAMINATION: VITAL SIGNS: Temperature 97.1, heart rate 72, respiratory rate 28, blood pressure 132/61, O2 sat 85% on vent support. GENERAL: Intubated and sedated, on pressors, epinephrine and dopamine to be titrated for MAP 65 to 75. CHEST: With coarse rales throughout. CARDIOVASCULAR: Irregularly irregular rate and rhythm. Normal S1 and S2. Systolic ejection murmur 2/6. ABDOMEN: Soft. EXTREMITIES: No edema. Decreased pedal pulses. CARDIOVASCULAR MEDICATIONS: Reviewed, on furosemide 40 mg IV b.i.d., heparin 5000 subcutaneous q.12h., atorvastatin 20 mg nightly, metoprolol 12.5 mg every 12 hours, amiodarone. STUDIES: White blood cells 12.3, hemoglobin 9, platelets 175,000. INR 1.6. Sodium 148, potassium 3.9, chloride 118, bicarbonate 15, glucose 170, magnesium 1.7, calcium 9.7. Serial troponins 0.119, then 0.52, then 0.389, then 0.315. ASSESSMENT: 1. Acute respiratory failure, likely aspiration pneumonia. 2. Septic shock. 3. [id number] severe systolic heart failure. 4. Acute kidney injury. 5. History of transcatheter aortic valve replacement for aortic stenosis. 6. Urinary tract infection and sepsis. 7. Right-sided pleural effusion. 8. Anemia and metabolic acidosis. 9. Failure to thrive with recent abnormal swallow evaluation. RECOMMENDATIONS: Guarded prognosis in the short term. Continue to titrate pressors accordingly. Supportive care. Overall guarded prognosis. Antibiotics. IV fluids as needed, judicious management of ins and outs. Job#: [id number] DR OWENS
== END 2018-06-09 17:45 | disposition expired | DRG 853 ==
LOC: ER 16:34 → ERHOLD 20:10 → MED/SURG2 06-08 10:57 → ICU 06-09 11:33
PROVIDERS: ADMIT Internal Medicine; ATTEND Internal Medicine
PROC: 02HV33Z Insertion of Infusion Device into Superior Vena Cava, Percutaneous Approach (ICD-10-PCS; principal; 2018-06-09)
PROC: 5A02216 Assistance with Cardiac Output using Other Pump, Continuous (ICD-10-PCS; 2018-06-09)
PROC: 5A1935Z Respiratory Ventilation, Less than 24 Consecutive Hours (ICD-10-PCS; 2018-06-09)
PROC: 0BH17EZ Insertion of Endotracheal Airway into Trachea, Via Natural or Artificial Opening (ICD-10-PCS; 2018-06-09)
DX: A41.9 Sepsis, unspecified organism (principal); I50.41 Acute combined systolic (congestive) and diastolic (congestive) heart failure; J18.9 Pneumonia, unspecified organism; J96.00 Acute respiratory failure, unspecified whether with hypoxia or hypercapnia; R65.21 Severe sepsis with septic shock; J69.0 Pneumonitis due to inhalation of food and vomit; E87.2 Acidosis; N39.0 Urinary tract infection, site not specified; N17.9 Acute kidney failure, unspecified; I11.0 Hypertensive heart disease with heart failure; J20.9 Acute bronchitis, unspecified; N28.9 Disorder of kidney and ureter, unspecified; D64.9 Anemia, unspecified; E78.5 Hyperlipidemia, unspecified; E11.9 Type 2 diabetes mellitus without complications; L89.152 Pressure ulcer of sacral region, stage 2; Z83.3 Family history of diabetes mellitus; Z82.49 Family history of ischemic heart disease and other diseases of the circulatory system; I49.9 Cardiac arrhythmia, unspecified; I25.10 Atherosclerotic heart disease of native coronary artery without angina pectoris; Z95.1 Presence of aortocoronary bypass graft; Z95.2 Presence of prosthetic heart valve; Z95.810 Presence of automatic (implantable) cardiac defibrillator; Z87.891 Personal history of nicotine dependence; R63.4 Abnormal weight loss; R53.81 Other malaise; R57.0 Cardiogenic shock; R62.7 Adult failure to thrive; L89.610 Pressure ulcer of right heel, unstageable
CPT/HCPCS: 31500; 31720; 36415; 36600; 51700; 71045; 71250; 74018; 76937; 80048; 80053; 80061; 81001; 82550; 82553; 82805; 82948; 83036; 83605; 83735; 83880; 84443; 84484; 85025; 85379; 85610; 85730; 87040; 87070; 87086; 87186; 87205; 93005; 93306; 94002; 94003; 94640; 99285; J0171; J0696; J1644; J1940